=== PATIENT | male | born 2000 | race Caucasian/White ===

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

== ENCOUNTER 2022-02-11 02:46 | Emergency (ER) | payer MEDICAID ==
[~2022-02-11] VITALS: Ht 170 cm; Wt 77.0 kg
[~2022-02-11 02:46] MED LIST changes: +BENZ-13 PO; +RT-ALBUINH IH
[2022-02-11 03:02] VITALS: BP 129/80
--- NOTE | 2022-02-11 03:50 | ED General ---
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 OF HAVING TO DRIVE AT DIFFERENT TIMES, ETC. PT IS NOT COVID OR FLU VACCINATED PT TAKES CELEXA FOR DEPRESSION/ANXIETY. DENIES ANY CHANGE IN MEDICATION RECENTLY--HAS BEEN ON THIS MEDICATION AND SAME DOSE FOR OVER A YEAR. PCP: GALA Allergies and Home Medications Allergies Coded Allergies: No Known Drug Allergies (Unverified , 07/18/18) Patient Home Medication List Home Medication List Reviewed: Yes Albuterol Sulfate (Proair Hfa) 1 Puff Puff, 2 PUFF IH Q4H PRN for COUGH Prescribed by: CATHY CHURCH on 07/18/182211 Azithromycin (Azithromycin) 250 Mg Tablet, 250 MG PO UD Prescribed by: EDER SERNA on 02/18/15 0920 Benzonatate (Tessalon Perle) 100 Mg Capsule, 100 MG PO Q6H PRN for cough Prescribed by: CATHY CHURCH on 07/18/18 223 Loratadine (Loratadine) 10 Mg Tablet, 10 MG PO DAILY, (Reported) Entered as Reported by: NIKOLAS ARGUELLO on 12/08/12 1257 Methylphenidate (Daytrana) 1 Each Patch.td24, 1 EACH TD, (Reported) Entered as Reported by: TRELL ZHU on 08/10/12 0153 [Ranitidine] , (Reported) Entered as Reported by: NIKOLAS ARGUELLO on 12/08/12 1257 Review of Systems Review of Systems Constitutional: see HPI; No chills, No diaphoresis, No dizziness, No fever; malaise; No weakness EENTM: no symptoms reported Respiratory: no symptoms reported Cardiovascular: no symptoms reported Gastrointestinal: see HPI; No abdominal pain; diarrhea, loss of appetite, nausea; No vomiting Genitourinary: no symptoms reported Musculoskeletal: no symptoms reported Skin: no symptoms reported Psychiatric/Neurological: No Symptoms Reported Hematologic/Lymphatic: No Symptoms Reported Immunological/Allergic: no symptoms reported Past Lshavmt-Qjlqdd-Pjgxkn Hx Patient Social History Tobacco Use?: No Smoking Status: Never a Smoker Smokeless Tobacco Frequency: Never a User Use of E-Cig and/or Vaping Chepe: Never a User Substance use?: No Alcohol Use?: No Immunizations Up To Date Tetanus Booster (TDap): Less than 5yrs Seasonal Allergies Seasonal Allergies: Yes Past Medical History Surgeries: Yes (BMT'S X 2 SETS; SURGERY FOR PYLORIC STENOSIS INFANT) Abdominal, Ear Surgery Respiratory: Yes Asthma Cardiac: No Neurological: No Reproductive Disorders: No Sexually Transmitted Disease: No Genitourinary: No Gastrointestinal: Yes (PYLORIC STENOSIS SURGERY INFANT) Musculoskeletal: Yes (recurrent costochondritis) Endocrine: No HEENT: No Cancer: No Psychosocial: Yes ADD/ADHD, Anxiety, Depression Integumentary: Yes ("COLD SORES" ) Blood Disorders: No Family Medical History Asthma Physical Exam Vital Signs Vital Signs - First Documented 02/11/22 03:02 Temp 36.8 Pulse 88 Resp 18 B/P (MAP) 129/80 (96) Capillary Refill : Height, Weight, BMI Height: 5'7.00" Weight: 140lbs. oz. 63.830546ba; 21.09 BMI Method:Stated General Appearance: No Apparent Distress, WD/WN, Other (DOES NOT APPEAR ILL OR TO BE IN ANY DISCOMFORT OR DISTRESS) HEENT: PERRL/EOMI, TMs Normal, Normal ENT Inspection, Pharynx Normal, Moist Mucous Membranes Neck: Full Range of Motion, Normal Inspection, Non Tender, Supple Respiratory: Normal Breath Sounds, No Accessory Muscle Use, No Respiratory Distress Cardiovascular: Regular Rate, Rhythm, No Murmur Gastrointestinal: Non Tender, Soft Back: Normal Inspection Extremity: Normal Inspection Neurologic/Psychiatric: Alert, Oriented x3, No Motor/Sensory Deficits, Normal 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, 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 as Tested; No Abnormal Cerebellar Tests Skin: Normal Color, Warm/Dry; No Rash Progress/Results/Core Measures Suspected Sepsis SIRS Temperature: Pulse: Respiratory Rate: Laboratory Tests 02/11/22 03:50: White Blood Count 10.2 Blood Pressure / Mean: Laboratory Tests 02/11/22 03:50: Creatinine 0.92, Platelet Count 308, Total Bilirubin 0.7 Results/Orders Lab Results Laboratory Tests Test 02/11/22 03:50 02/11/22 03:52 02/11/22 04:00 Range/Units White Blood Count 10.2 4.3-11.0 10^3/uL Red Blood Count 4.97 4.30-5.52 10^6/uL Hemoglobin 15.4 13.3-17.7 g/dL Hematocrit 43 40-54 % Mean Corpuscular Volume 87 80-99 fL Mean Corpuscular Hemoglobin 31 25-34 pg Mean Corpuscular Hemoglobin Concent 36 32-36 g/dL Red Cell Distribution Width 11.2 10.0-14.5 % Platelet Count 308 130-400 10^3/uL Mean Platelet Volume 9.7 9.0-12.2 fL Immature Granulocyte % (Auto) 0 % Neutrophils (%) (Auto) 75 42-75 % Lymphocytes (%) (Auto) 16 12-44 % Monocytes (%) (Auto) 7 0-12 % Eosinophils (%) (Auto) 1 0-10 % Basophils (%) (Auto) 0 0-10 % Neutrophils # (Auto) 7.7 1.8-7.8 10^3/uL Lymphocytes # (Auto) 1.7 1.0-4.0 10^3/uL Monocytes # (Auto) 0.7 0.0-1.0 10^3/uL Eosinophils # (Auto) 0.1 0.0-0.3 10^3/uL Basophils # (Auto) 0.0 0.0-0.1 10^3/uL Immature Granulocyte # (Auto) 0.0 0.0-0.1 10^3/uL Sodium Level 140 135-145 MMOL/L Potassium Level 3.3 L 3.6-5.0 MMOL/L Chloride Level 105 98-107 MMOL/L Carbon Dioxide Level 24 21-32 MMOL/L Anion Gap 11 5-14 MMOL/L Blood Urea Nitrogen 6 L 7-18 MG/DL Creatinine 0.92 0.60-1.30 MG/DL Estimat Glomerular Filtration Rate 123 BUN/Creatinine Ratio 7 Glucose Level 93 70-105 MG/DL Calcium Level 9.5 8.5-10.1 MG/DL Corrected Calcium 8.5-10.1 MG/DL Total Bilirubin 0.7 0.1-1.0 MG/DL Aspartate Amino Transf (AST/SGOT) 27 5-34 U/L Alanine Aminotransferase (ALT/SGPT) 38 0-55 U/L Alkaline Phosphatase 112 40-136 U/L Total Protein 7.4 6.4-8.2 GM/DL Albumin 4.8 H 3.2-4.5 GM/DL TSH E[place] Testing 1.33 0.35-4.94 UIU/ML Monoscreen NEGATIVE NEGATIVE Influenza Type A (RT-PCR) Not Detected Not Detecte Influenza Type B (RT-PCR) Not Detected Not Detecte SARS-CoV-2 RNA (RT-PCR) Not Detected Not Detecte Urine Color YELLOW Urine Clarity CLEAR Urine pH 5.5 5-9 Urine Specific [place] >=1.030 1.016-1.022 Urine Protein NEGATIVE NEGATIVE Urine Glucose (UA) NEGATIVE NEGATIVE Urine Ketones TRACE H NEGATIVE Urine Nitrite NEGATIVE NEGATIVE Urine Bilirubin NEGATIVE NEGATIVE Urine Urobilinogen 1.0 < = 1.0 MG/DL Urine Leukocyte Esterase NEGATIVE NEGATIVE Urine RBC (Auto) NEGATIVE NEGATIVE Urine RBC NONE /HPF Urine WBC 0-2 /HPF Urine Crystals NONE /LPF Urine Bacteria FEW H /HPF Urine Casts NONE /LPF Urine Mucus LARGE H /LPF Urine Culture Indicated NO My Orders Orders - JF LYLES DO Cbc With Automated Diff (02/11/22 03:34) Comprehensive Metabolic Panel (02/11/22 03:34) Monotest (02/11/22 03:34) Thyroid Analyzer (02/11/22 03:34) Ua Culture If Indicated (02/11/22 03:34) Covid 19 Inhouse Test (02/11/22 03:34) Influenza A And B By Pcr (02/11/22 03:34) Isolation Central Supply Req (02/11/22 03:34) Vital Signs/I&O 02/11/22 03:02 Temp 36.8 Pulse 88 Resp 18 B/P (MAP) 129/80 (96) Capillary Refill : Progress Note : Progress Note PPE WORN COVID, FLU AND MONO TESTING DONE. UNEVENTFUL ER STAY PT VERY AWAKE AND ALERT AND PLAYING ON HIS PHONE FOR ENTIRE ER STAY AND DID NOT SLEEP AT ANY TIME OR APPEAR DROWSY AT ANY TIME. Departure Impression Primary Impression: Sleepiness Additional Impression: SUSPECT SHIFT WORK RELATED SLEEPINESS Disposition: 01 HOME, SELF-CARE Condition: Stable Departure-Patient Inst. Decision time for Depature: 05:04 Referrals: [facility] (PCP/Family) Primary Care Physician Patient Instructions: Daytime Sleepiness Add. Discharge Instructions: HOME, REST LOTS OF FLUIDS FOLLOW UP WITH YOUR DR IN 1 WEEK IF SYMPTOMS PERSIST JF LYLES DO Feb 11, 2022 03:50
[2022-02-11 04:02] LABS: BASOPHILS % (AUTO) 0 % (0-10); EOSINOPHILS # (AUTO) 0.1 10^3/uL (0.0-0.3); EOSINOPHILS % (AUTO) 1 % (0-10); HEMATOCRIT 43 % (40-54); HEMOGLOBIN 15.4 g/dL (13.3-17.7); LYMPHOCYTES # (AUTO) 1.7 10^3/uL (1.0-4.0); LYMPHOCYTES % (AUTO) 16 % (12-44); MEAN CORPUSCULAR HEMOGLOBIN 31 pg (25-34); MEAN CORPUSCULAR HGB CONC 36 g/dL (32-36); MEAN CORPUSCULAR VOLUME 87 fL (80-99); MEAN PLATELET VOLUME 9.7 fL (9.0-12.2); MONOCYTES # (AUTO) 0.7 10^3/uL (0.0-1.0); MONOCYTES % (AUTO) 7 % (0-12); NEUTROPHILS # (AUTO) 7.7 10^3/uL (1.8-7.8); NEUTROPHILS % (AUTO) 75 % (42-75); PLATELET COUNT 308 10^3/uL (130-400); WHITE BLOOD COUNT 10.2 10^3/uL (4.3-11.0)
[2022-02-11 04:11] LABS: BILIRUBIN,URINE NEGATIVE (NEGATIVE); CLARITY,URINE CLEAR; COLOR,URINE YELLOW; GLUCOSE, URINE (UA) NEGATIVE (NEGATIVE); KETONES,URINE TRACE (NEGATIVE); LEUKOCYTE ESTERASE ,URINE NEGATIVE (NEGATIVE); NITRITE,URINE NEGATIVE (NEGATIVE); PH,URINE 5.5 (5-9); PROTEIN,URINE NEGATIVE (NEGATIVE)
[2022-02-11 04:32] LABS: ALBUMIN 4.8 GM/DL (3.2-4.5); CHLORIDE 105 MMOL/L (98-107); POTASSIUM 3.3 MMOL/L (3.6-5.0); SODIUM 140 MMOL/L (135-145)
[2022-02-11 04:33] LABS: CALCIUM 9.5 MG/DL (8.5-10.1)
[2022-02-11 04:34] LABS: GLUCOSE 93 MG/DL (70-105); TOTAL PROTEIN 7.4 GM/DL (6.4-8.2)
[2022-02-11 04:35] LABS: CARBON DIOXIDE 24 MMOL/L (21-32)
[2022-02-11 04:36] LABS: BILIRUBIN,TOTAL 0.7 MG/DL (0.1-1.0)
[2022-02-11 04:38] LABS: ALKALINE PHOSPHATASE 112 U/L (40-136); CREATININE SERUM 0.92 MG/DL (0.60-1.30); GFR ESTIMATED 123
[2022-02-11 04:38] LABS: BACTERIA,URINE FEW /HPF; WBC,URINE 0-2 /HPF
[2022-02-11 04:39] LABS: BUN/CREATININE RATIO 7
[2022-02-11 04:41] LABS: ALANINE AMINOTRANSFERASE 38 U/L (0-55)
[2022-02-11 05:01] LABS: TSH (THYROID ANALYZER) 1.33 UIU/ML (0.35-4.94)
== END 2022-02-11 05:15 | disposition home or self-care (01) ==
LOC: EDUNIT# 02:46 → ER 02:51
DX: R40.0 Somnolence (principal); Z20.822 Contact with and (suspected) exposure to COVID-19; Z28.310 Unvaccinated for COVID-19
CPT/HCPCS: 36415; 80053; 81000; 84443; 85025; 86308; 87636; 99283

== ENCOUNTER 2022-07-23 22:00 | Emergency (ER) | payer MEDICAID ==
[~2022-07-23] VITALS: Ht 172.7 cm; Wt 77.1 kg
[~2022-07-23 22:00] MED LIST changes: +ALBU8.5H6 IH; -RT-ALBUINH IH
[2022-07-23] MEDS ORDERED: LIDOCAINE 1% INJ 10 ML VIAL ONE (22:19)
--- NOTE | 2022-07-23 22:19 | ED Upper Extremity ---
General Chief Complaint: Laceration Stated Complaint: DEEP CUT LACERATION ON FOREARM Nursing Triage Note: PT AMB TO RM 3 W C/O SMALL LAC TO R FOREARM CAUSED BY CLAW KNIFE WHEN HE WAS "TWIRLING IT AROUND." PT A&OX4. Source: patient Exam Limitations: no limitations History of Present Illness Date Seen by Provider: Jul 23, 2022 Time Seen by Provider: 22:19 Initial Comments Patient is a 22-year-old male who presents ED with a laceration to the volar side of his right forearm. This occurred around 10 PM this evening. Patient states he was playing with a hooked pocket knife when it fell landing and lodging itself in thr mid forearm resulting in a 2 cm laceration. Patient had moderate amount of bleeding. Bleeding controlled on arrival. Not up-to-date his tetanus. Normal active range of motion of the wrist, elbow and digits. Allergies and Home Medications Allergies Coded Allergies: methylphenidate (Verified Allergy, Unknown, 07/23/22) Patient Home Medication List Home Medication List Reviewed: Yes Albuterol Sulfate (Ventolin Hfa) 1 Puff Puff, 2 PUFF IH Q4H PRN for COUGH Prescribed by: CATHY CHURCH on 07/18/18 2212 Azithromycin (Azithromycin) 250 Mg Tablet, 250 MG PO UD Prescribed by: EDER SERNA on 02/18/15 0920 Benzonatate (Tessalon Perle) 100 Mg Capsule, 100 MG PO Q6H PRN for cough Prescribed by: CATHY CHURCH on 07/18/18 2233 Loratadine (Loratadine) 10 Mg Tablet, 10 MG PO DAILY, (Reported) Entered as Reported by: NIKOLAS ARGUELLO on 12/08/12 1257 Methylphenidate (Daytrana) 1 Each Patch.td24, 1 EACH TD, (Reported) Entered as Reported by: TRELL ZHU on 08/10/12 0153 [Ranitidine] , (Reported) Entered as Reported by: NIKOLAS ARGUELLO on 12/08/12 1257 Review of Systems Constitutional: No chills, No diaphoresis, No malaise EENTM: No ear pain, No blurred vision, No double vision, No mouth pain, No mouth swelling Respiratory: No cough, No dyspnea on exertion Cardiovascular: No chest pain, No edema Gastrointestinal: No abdominal pain, No diarrhea, No vomiting Genitourinary: No decreased output, No discharge Musculoskeletal: No back pain, No joint pain; muscle pain Skin: change in color, other (Forearm laceration right side) All Other Systems Reviewed Negative Unless Noted: Yes Past Qnwqfzf-Itffpb-Atzxxb Hx Patient Social History Tobacco Use?: No Use of E-Cig and/or Vaping dev: No Substance use?: No Alcohol Use?: No Immunizations Up To Date Tetanus Booster (TDap): Less than 5yrs First/Initial COVID19 Vaccinat: NONE Second COVID19 Vaccination Channing: NONE Third COVID19 Vaccination Date: NONE COVID19 Vaccine Pressure Testing Technician: NONE Seasonal Allergies Seasonal Allergies: Yes Past Medical History Surgeries: Yes (BMT'S X 2 SETS; SURGERY FOR PYLORIC STENOSIS ) Abdominal, Ear Surgery Respiratory: Yes Asthma Cardiac: No Neurological: No Reproductive Disorders: No Sexually Transmitted Disease: No Genitourinary: No Gastrointestinal: Yes (PYLORIC STENOSIS SURGERY ) Musculoskeletal: Yes (recurrent costochondritis) Endocrine: No HEENT: No Cancer: No Psychosocial: Yes ADD/ADHD, Anxiety, Depression Integumentary: Yes ("COLD SORES" ) Blood Disorders: No Family Medical History Asthma Physical Exam Vital Signs Vital Signs - First Documented 07/23/22 22:03 Temp 35.8 Pulse 69 Resp 18 B/P (MAP) 98/57 (71) Pulse Ox 100 O2 Delivery Room Air Capillary Refill : Less Than 3 Seconds Height, Weight, BMI Height: 5'7.00" Weight: 140lbs. oz. 63.949521do; 25.00 BMI Method:Stated General Appearance: WD/WN, no apparent distress HEENT: PERRL/EOMI, normal ENT inspection, TMs normal, pharynx normal Neck: non-tender, full range of motion, supple, normal inspection Cardiovascular: regular rate, rhythm, no edema, no gallop, no JVD Respiratory: chest non-tender, lungs clear, normal breath sounds, no respiratory distress, no accessory muscle use Gastrointestinal: normal bowel sounds, non tender, soft, no organomegaly Back: normal inspection, no CVA tenderness Elbow/Forearm: Right, soft tissue tenderness (2 cm laceration to the right volar mid forearm.) Wrist: Yes normal inspection, Yes non-tender, Yes no evidence of injury, Yes normal ROM Hand: normal inspection, non-tender, no evidence of injury, Right 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 Mild adipose involvement. No muscular or tendon vomit) Procedures/Interventions Wound Location: Upper Extremities Other Wound Location right forearm Wound Length (cm): 2 Wound's Depth, Shape: superficial, sub Q Wound Explored: clean Irrigated w/ Saline (ccs): 200 Betadine Prep?: Yes Anesthesia: 1% Lidocaine Volume Anesthetic (ccs): 5 Suture: Ethlion Suture Size: 4-0 Number of Sutures: 4 Layer Closure?: 1 Sterile Dressing Applied?: Yes Progress/Results/Core Measures Results/Orders My Orders Orders - HOWARD GUZMAN Pertuss(Acell),Tet Adult (Boostrix (07/23/22 22:30) Lidocaine 1% Inj 10 Ml (Xylocaine 1% Inj (07/23/22 22:30) Medications Given in ED Current Medications Medications Dose Ordered Sig/Prem Route Start Time Stop Time Status Last Admin Dose Admin Diphtheria/ Tetanus/Acell Pertussis 0.5 ml ONCE ONCE IM 07/23/22 22:30 07/23/22 22:31 DC 07/23/22 22:24 0.5 ML Lidocaine HCl 10 ml ONCE ONCE INJ 07/23/22 22:30 07/23/22 22:31 DC 07/23/22 22:24 10 ML Vital Signs/I&O 07/23/22 22:03 Temp 35.8 Pulse 69 Resp 18 B/P (MAP) 98/57 (71) Pulse Ox 100 O2 Delivery Room Air Blood Pressure Mean: 71 Departure Communication (PCP) Patient with a 2 cm laceration to the right mid forearm. Wound appears to be clean. Mild adipose involvement. No tendon or muscular involvement. Provided a tetanus shot. Cleaned the area with normal saline and Shur-Clens. Prepped with iodine. Placed 4 4-0 Ethilon sutures. Patient tolerated procedure well. Procedure documented note. Wound appears clean. Neosporin topical twice a day. Keep the area covered. Remove sutures in 10 days. Return precaution were discussed with patient. Impression Primary Impression: Forearm laceration Disposition: 01 HOME, SELF-CARE Condition: Stable Departure-Patient Inst. Decision time for Depature: 22:22 Referrals: [facility] (PCP/Family) Primary Care Physician Patient Instructions: Laceration Repair With Stitches ED Add. Discharge Instructions: Remove stitches in 10 days. Neosporin topical daily. Keep the area covered. It is okay to get the sutures wet with soap and water., Take anti-inflammato zee for pain. All discharge instructions reviewed with patient and/or family. Voiced understanding. Work/School Note: Work Release Form Date Seen in the Emergency Department: Jul 23, 2022 Return to Work: Jul 25, 2022 HOWARD GUZMAN Jul 23, 2022 22:19
[2022-07-23] MEDS ORDERED: TETANUS,DIPTH,PERTUSS P/F (BOOSTRIX) 0.5 ML VIAL IM ONE (22:30)
[2022-07-23] MEDS ORDERED: LIDOCAINE 1% INJ 10 ML VIAL INJ ONE (22:30)
[2022-07-23 22:47] VITALS: BP 98/57
== END 2022-07-23 22:47 | disposition home or self-care (01) ==
LOC: EDUNIT# 22:00 → ER 22:01
DX: S51.811A Laceration without foreign body of right forearm, initial encounter (principal); Z23 Encounter for immunization; Z28.310 Unvaccinated for COVID-19; W26.0XXA Contact with knife, initial encounter
CPT/HCPCS: 12001; 90715

== ENCOUNTER 2022-07-31 14:11 | Emergency (ER) | payer MEDICAID ==
[~2022-07-31] VITALS: Ht 177 cm; Wt 68.0 kg
[2022-07-31 14:31] VITALS: BP 110/76
== END 2022-07-31 14:31 | disposition home or self-care (01) ==
LOC: EDUNIT# 14:11 → ER 14:13
DX: Z48.02 Encounter for removal of sutures (principal)